=== PATIENT | male | born 1980 | race Caucasian/White ===

== ENCOUNTER 2020-02-19 17:59 | Emergency (ER) | payer MEDICAID ==
[~2020-02-19] VITALS: Ht 172.7 cm; Wt 76.7 kg
[2020-02-19 18:14] VITALS: BP 136/67
--- NOTE | 2020-02-19 18:30 | NUR ---
PT C/O LEFT GREAT INGROWN TOENAIL X1 YEAR; PT ALSO STATES " I BELIEVE I HAVE AN ANAL FISSURE" PT STATES HE HAS BLOOD WITH DEFECATION X3 MONTHS. SAW A GI SPECILIST 3 MONTHS AGO AND TX WITH NITROGLYCERIN CREAM WITH MILD RELIEF, PER PT. HR EVEN AND REGULAR; PT DENIES ANY FEVER, CP, SOB, OR COUGH AT THIS TIME; PATIENT STATES PAIN OF 8/10 AT THIS TIME; VSS; PATIENT POSITIONED FOR COMFORT; HOB ELEVATED; BEDRAILS UP X1; BED DOWN. ER MD MADE AWARE OF PT STATUS.
--- NOTE | 2020-02-19 19:13 | NUR ---
change of shift report recieved from Loly BRANHAM. assume pt care.
[2020-02-19 19:14] VITALS: BP 136/67
--- NOTE | 2020-02-19 19:14 | NUR ---
Pt report given to YONAS Savage. Transfer of care at this time.
--- NOTE | 2020-02-19 19:45 | NUR ---
ANGÉLICA DIXON AT BEDSIDE EVALUATING PT.
== END 2020-02-19 20:00 | disposition home or self-care (01) ==
LOC: MED 17:59
DX: M79.675 Pain in left toe(s) (principal); K60.2 Anal fissure, unspecified
CPT/HCPCS: 99282